=== PATIENT | male | born 1995 ===

== ENCOUNTER → 2016-04-21 | Outpatient (CLI) | payer BC, OTHER ==
--- NOTE | 2016-04-21 16:35 | DIAGNOSTIC IMAGING REPORT ---
LUMBAR SPINE 5 VIEWS CLINICAL HISTORY: Low back pain. FINDINGS: 5 views of the lumbar spine are obtained. No prior studies are available for comparison at the time of dictation. The skeletal structures are well mineralized. There is no radiographic evidence of fracture or malalignment. Vertebral body height and alignment are maintained. The transverse and spinous processes are intact. There is no evidence of spondylolysis. The intervertebral disc spaces are well-maintained. The visualized bony pelvis appears intact. There is a nonobstructed abdominal bowel gas pattern. IMPRESSION: Unremarkable radiographic evaluation of the lumbosacral spine. Electronically signed by: John Guerrero M.D. 04/21/2016 4:33 PM Dictated Date/Time: 04/21/2016 4:33 PM
== END | disposition home or self-care (01) ==
LOC: C.RDSM 15:45
PROVIDERS: ATTEND Family Medicine
DX: M54.9 Dorsalgia, unspecified (principal)

== ENCOUNTER → 2016-04-27 | Outpatient (CLI) | payer BC, OTHER ==
--- NOTE | 2016-04-27 17:02 | DIAGNOSTIC IMAGING REPORT ---
LUMBAR SPINE MRI HISTORY: Back pain BILATERAL BACK PAIN TECHNIQUE: Multiplanar multisequence MRI of the lumbar spine was performed without the use of contrast. COMPARISON: None. FINDINGS: For the purpose of the report the L5-S1 disc space will be located on axial image 27 of 30. Normal signal characteristics of the vertebral bodies as well as intervertebral discs L1-L2: No significant central canal or neural foraminal narrowing. L2-L3: No significant central canal or neural foraminal narrowing. L3-L4: No significant central canal or neural foraminal narrowing. L4-L5: No significant central canal or neural foraminal narrowing. L5-S1: No significant central canal or neural foraminal narrowing. IMPRESSION: Normal study Electronically signed by: Gerald Wright M.D. 04/27/2016 5:01 PM Dictated Date/Time: 04/27/2016 4:59 PM
== END | disposition home or self-care (01) ==
LOC: C.MRI 16:12
PROVIDERS: ATTEND Family Medicine
DX: M54.9 Dorsalgia, unspecified (principal)